=== PATIENT | male | born 2005 | race Caucasian/White ===

== ENCOUNTER 2025-01-15 18:18 | Emergency (ER) | payer SELFPAY ==
[2025-01-15 18:25] VITALS: TEMP 98.9
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
[2025-01-15 18:38] LABS: Glucose,Whole Blood 103 mg/dL (70-110)
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
[2025-01-15 19:00] LABS: Basophils # (A) 0.05 10*3/uL (0.00-0.10); Basophils % (A) 0.5 %; Eosinophils # (A) 0.02 10*3/uL (0.04-0.35); Eosinophils % (A) 0.2 %; HCT 49.8 % (39.6-50.0); HGB 17.6 g/dL (13.0-17.0); Lymphocytes # (A) 1.81 10*3/uL (0.90-5.00); Lymphocytes % (A) 19.8 %; MCH 30.2 pg (27.0-32.0); MCHC 35.3 g/dL (32.0-37.0); MCV 85.4 fL (80.0-97.0); Monocytes # (A) 0.52 10*3/uL (0.20-1.00); Monocytes % (A) 5.7 %; Neutrophils # (A) 6.70 10*3/uL (1.80-7.70); Neutrophils % (A) 73.6 %; Platelet Count 248 10*3/uL (140-440); RBC 5.83 10*6/uL (4.40-5.60); RDW 13.4 % (11.5-14.5); WBC 9.12 10*3/uL (4.50-10.00)
[2025-01-15 19:13] LABS: ALT 19 U/L (4-49); AST 30 U/L (17-59); African American GFR (CKD) >90 (>60 ml/min/1.73 sqM); Albumin 5.0 g/dL (3.5-5.0); Alkaline Phosphatase 115 U/L (38-126); Anion Gap 13 mmol/L; Blood Urea Nitrogen 18 mg/dL (9-20); Calcium 10.2 mg/dL (8.4-10.2); Carbon Dioxide 29 mmol/L (22-30); Chloride 100 mmol/L (98-107); Glucose 86 mg/dL (74-99); Non-African American GFR(CKD) >90 (>60 ml/min/1.73 sqM); Potassium 3.8 mmol/L (3.5-5.1); Sodium 142 mmol/L (137-145); Total Protein 7.7 g/dL (6.3-8.2)
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
[2025-01-15 19:16] LABS: INR 1.1 (<1.2); Partial Thromboplastin Time 22.4 sec (22.0-30.0); Prothrombin Time 12.2 sec (10.0-12.5)
[2025-01-15] MEDS ORDERED: MORPHINE SULFATE 4 MG/ML SYRINGE IVP PRN (19:16)
[2025-01-15] MEDS: KETOROLAC 15 MG/ML 1 ML VIAL IVP STA (19:38)
[2025-01-15] MEDS: SODIUM CHLORIDE 0.9% 1,000 ML IV STA (19:38)
[2025-01-15 20:25] VITALS: BP 135/87
[2025-01-15] MEDS: ACET/COD 300 MG/30 MG STARTER PACK TAB BTL PO STA (21:12)
[2025-01-15 21:18] VITALS: PULSE 84; RESP 12
[2025-01-15 21:51] LABS: Barbiturate Screen,Urine Not Detected (NotDetected); Benzodiazepines Screen,Urine Not Detected (NotDetected); Opiate Screen,Urine Not Detected (NotDetected); Oxycodone Screen, Urine Not Detected (NotDetected); Phencyclidine Screen,Urine Not Detected (NotDetected); Tricyclic Antidepressant,Urine Not Detected (NotDetected); Urn Cannabinoid Scrn Not Detected (NotDetected)
== END 2025-01-15 21:31 | disposition home or self-care (01) ==
LOC: EC 18:18
DX: S06.0X0A Concussion without loss of consciousness, initial encounter (principal); V93.33XA Fall on board other powered watercraft, initial encounter
CPT/HCPCS: 36415; 93005; 86900; 86901; 80053; 83605; 84484; 85025; 85610; 85730; 86850; 80306; 80320; 72170; 71045; 72125; 70450; 99284; 96374; 96361; J1885